=== PATIENT | male | born 1990 | race Asian ===

== ENCOUNTER 2022-02-28 07:20 | Emergency (ER) | payer OTHER ==
[~2022-02-28] VITALS: Ht 190.5 cm; Wt 138.8 kg
[2022-02-28 07:26] VITALS: TEMP 97.7
[2022-02-28 08:05] VITALS: BP 142/88
== END 2022-02-28 08:18 ==
LOC: ED 07:20
PROC: 0HQFXZZ Repair Right Hand Skin, External Approach (ICD-10-PCS; principal; 2022-02-28)
PROC: 0HQGXZZ Repair Left Hand Skin, External Approach (ICD-10-PCS; 2022-02-28)
DX: S61.210A Laceration without foreign body of right index finger without damage to nail, initial encounter (principal); S61.012A Laceration without foreign body of left thumb without damage to nail, initial encounter; W26.0XXA Contact with knife, initial encounter; Y92.89 Other specified places as the place of occurrence of the external cause
CPT/HCPCS: 90471; 90715; 99282

== ENCOUNTER 2022-09-06 07:27 | Emergency (ER) | payer BC ==
[~2022-09-06] VITALS: Ht 190.5 cm; Wt 140.6 kg
[2022-09-06 07:28] VITALS: BP 187/99; TEMP 99.4
== END 2022-09-06 08:17 | disposition home or self-care (01) ==
LOC: ED 07:27
DX: L03.113 Cellulitis of right upper limb (principal)
CPT/HCPCS: 96372; 99282; J1885